=== PATIENT | female | born 1960 | race Caucasian/White ===

== ENCOUNTER 2018-04-17 09:12 | Day surgery (SDC) | payer OTHER ==
[2018-04-17] MEDS: SOD CHLORIDE 0.9% 1,000 ML IV (08:00)
[~2018-04-17 09:12] MED LIST: CYCLOPENTOLATE/PHENYLEPH 2 ML OPH OPER; DICLOFENAC 0.1% 2.5 ML OPH OPER; MOXIFLOXACIN 0.5% 3 ML OPH OPER; SOD CHLORIDE 0.9% 1,000 ML IV; TROPICAMIDE 1% 15 ML OPH OPER
[2018-04-17] MEDS: MOXIFLOXACIN 0.5% 3 ML OPH OPER (10:02)
[2018-04-17] MEDS: TROPICAMIDE 1% 15 ML OPH OPER (10:02)
[2018-04-17] MEDS: CYCLOPENTOLATE/PHENYLEPH 2 ML OPH OPER (10:03)
[2018-04-17] MEDS: DICLOFENAC 0.1% 2.5 ML OPH OPER (10:03)
[2018-04-17] MEDS ORDERED: TETRACAINE 0.5% 4 ML OPH (12:00)
[2018-04-17] MEDS ORDERED: CEFAZOLIN 1 GM INJ (12:00)
[2018-04-17] MEDS ORDERED: PROPOFOL 20 ML (12:17)
[2018-04-17] MEDS ORDERED: LIDOCAINE 2% (SDV) 5 ML INJ (12:17)
[2018-04-17] MEDS: LIDOCAINE 4% (MPF) 5 ML INJ (12:28)
[2018-04-17] MEDS: DEXAMETHASONE 4 MG/ML 1 ML INJ (12:28)
[2018-04-17] MEDS: NA HYALURONATE/CHONDROITIN 0.5 ML SYG (12:29)
[2018-04-17] MEDS: CARBACHOL 0.01% 1.5 ML OPH INJ RIGHT EYE (12:30)
[2018-04-17] MEDS ORDERED: FENTAnyl 50 MCG/ML VIAL (13:01)
[2018-04-17] MEDS ORDERED: ONDANSETRON 4 MG INJ (13:02)
[2018-04-17] MEDS ORDERED: hydrALAzine 20 MG INJ (13:10)
[2018-04-17] MEDS: HYDROmorphONE 1 MG/5 ML IV SYRINGE IV ×2 (13:22→13:27)
[2018-04-17] MEDS: FENTAnyl 50 MCG/ML VIAL IV (13:22)
[2018-04-17] MEDS: hydrALAzine 20 MG INJ IV (13:24)
[2018-04-17] MEDS: DIPHENHYDRAMINE 50 MG INJ IV (13:27)
[2018-04-17] MEDS ORDERED: OXYCODONE/ACETAMINOPHEN (5/325) TAB PO ×2 (13:30)
[2018-04-17] MEDS ORDERED: HYDROmorphONE 1 MG/5 ML IV SYRINGE IV ×2 (13:30)
[2018-04-17] MEDS ORDERED: FENTAnyl 50 MCG/ML VIAL IV (13:30)
[2018-04-17] MEDS ORDERED: ONDANSETRON 4 MG INJ IV (13:30)
[2018-04-17] MEDS: LABETALOL HCL 20MG INJ IV (13:31)
== END 2018-04-17 14:33 | disposition home or self-care (01) ==
LOC: SDS 09:12
DX: H25.041 Posterior subcapsular polar age-related cataract, right eye (principal); I10 Essential (primary) hypertension; E78.5 Hyperlipidemia, unspecified; E11.9 Type 2 diabetes mellitus without complications; E03.9 Hypothyroidism, unspecified
CPT/HCPCS: 66984; 82962

== ENCOUNTER 2018-08-17 21:42 | Emergency (ER) | payer OTHER ==
[2018-08-17] MEDS: morphine 4 MG/ML VIAL IM (23:44)
[2018-08-17] MEDS: ONDANSETRON (ODT) 4 MG TAB ODT (23:44)
[2018-08-18] MEDS: ONDANSETRON (ODT) 4 MG TAB ODT (01:34)
== END 2018-08-18 02:22 | disposition home or self-care (01) ==
LOC: E/R 21:42
DX: D17.1 Benign lipomatous neoplasm of skin and subcutaneous tissue of trunk (principal); I10 Essential (primary) hypertension; E11.9 Type 2 diabetes mellitus without complications; Z79.4 Long term (current) use of insulin; Z79.82 Long term (current) use of aspirin
CPT/HCPCS: 96372; 99284-25